=== PATIENT | female | born 1965 | race Caucasian/White ===

== ENCOUNTER 2017-10-01 18:54 | Emergency (ER) | payer BC ==
[2017-10-01] MEDS ORDERED: Acetaminophen TAB* 325 MG PO ONE (20:19)
--- NOTE | 2017-10-01 20:24 | UC ---
Lower Extremity/Ankle HPI - HPI Summary HPI Summary: pt missed a step and fell twisting her R ankle at about 4:30pm. c/o ankle pain. using old crutches to get around. 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 - History of Current Complaint Chief Complaint: UCLowerExtremity Stated Complaint: FALL RIGHT ANKLE INJURY Time Seen by Provider: 10/01/17 20:16 Hx Obtained From: Patient, Family/Project Developer Onset/Duration: Sudden Onset Pain Intensity: 7 Aggravating Factor(s): Ambulation Alleviating Factor(s): Rest, Elevation Able to Bear Weight: No - Allergies/Home Medications Allergies/Adverse Reactions: Allergies Allergy/AdvReac Type Severity Reaction Status Date / Time No Known Allergies Allergy Verified 10/01/17 20:23 Home Medications: Home Medications NK [No Home Medications Reported] 10/01/17 [History Confirmed 10/01/17] PMH/Surg Hx/FS Hx/Imm Hx Previously Healthy: Yes - Surgical History Surgical History: None - Social History Lives: With Family Alcohol Use: None Substance Use Type: None Smoking Status (MU): Never Smoked Tobacco - Immunization History Vaccination Up to Date: Yes Review of Systems Constitutional: Negative Skin: Negative Eyes: Negative ENT: Negative Respiratory: Negative Cardiovascular: Negative Gastrointestinal: Negative Genitourinary: Negative Motor: Negative Neurovascular: Negative Musculoskeletal: Other: - pain/ swelling R ankle Neurological: Negative Psychological: Negative Is Patient Immunocompromised?: No All Other Systems Reviewed And Are Negative: Yes Physical Exam Triage Information Reviewed: Yes Appearance: Well-Appearing Vital Signs: Initial Vital Signs Temp 97.7 F 10/01/17 19:37 Pulse 75 10/01/17 19:37 Resp 16 10/01/17 19:37 BP 160/88 10/01/17 19:37 Pulse Ox 99 10/01/17 19:37 Vital Signs Reviewed: Yes Eyes: Positive: Conjunctiva Clear ENT: Positive: Normal ENT inspection Neck: Positive: Supple Respiratory: Positive: Lungs clear, Normal breath sounds Cardiovascular: Positive: RRR, No Murmur Abdomen Description: Positive: Nontender, No Organomegaly, Soft Bowel Sounds: Positive: Present Musculoskeletal: Positive: Other: - RLE: hip, knee, achilles atraumatic. R lateral ankle with mild swelling and tenderness. foot non tender with full s/v/ m function. Neurological: Positive: Alert Psychological: Positive: Age Appropriate Behavior Skin Exam: Normal Diagnostics - Radiology No standard instances Xray Interpretation: Positive (See Comments) - STS, NO FX(SEE REPORT) Radiology Interpretation Completed By: Radiologist Lower Extremity Course/Dx - Course Course Of Treatment: NO FX, DISLOCATION OR CONCERN FOR INFECTION. C/W SPRAIN. - Differential Dx/Diagnosis Provider Diagnoses: SPRAIN R ANKLE Discharge - Sign-Out/Discharge Documenting (check all that apply): Discharge/Admit/Transfer - Discharge Plan Condition: Stable Disposition: HOME Patient Education Materials: Ankle Sprain (ED) Referrals: Jordy Marley MD [Medical Doctor] - 7 Days Additional Instructions: USE GIOVANY, ANKLE SPLINT AND YOUR CRUTCHES UNTIL CLEARED BY ORTHOPEDICS. - Billing Disposition and Condition Condition: STABLE Disposition: HOME
--- NOTE | 2017-10-01 20:44 | RAD ---
HISTORY: Fall, right ankle pain COMPARISONS: None VIEWS: 3, Frontal, lateral, and oblique views of the right ankle FINDINGS: BONE DENSITY: Normal. BONES: There is no displaced fracture. JOINTS: There is no arthropathy. ALIGNMENT: There is no dislocation. SOFT TISSUES: There is circumferential soft tissue swelling OTHER FINDINGS: None. IMPRESSION: SOFT TISSUE SWELLING. NO ACUTE OSSEOUS INJURY. IF SYMPTOMS PERSIST, RECOMMEND REPEAT IMAGING.
[2017-10-01 20:47] VITALS: BP 156/88
== END 2017-10-01 21:39 | disposition home or self-care (01) ==
LOC: UCCORT 18:54
DX: S93.401A Sprain of unspecified ligament of right ankle, initial encounter (principal); X50.0XXA Overexertion from strenuous movement or load, initial encounter; Y92.9 Unspecified place or not applicable
CPT/HCPCS: 99203; A9270-GY; G0463

== ENCOUNTER 2018-10-08 13:06 | Emergency (ER) | payer OTHER ==
--- OUTSIDE RECORDS SUMMARY | 2018-10-08 13:27 | XMS REPORT | Continuity of Care Document ---
:1965 External Reference #:[id number] Author Name Ava Gross Care Team Providers Name Role Phone Phoebe Miranda MD Primary Care Physician Unavailable Payers Date Identification Numbers Payment Provider Subscriber Policy Number: [id number] Eric Shaver PayID: [id number] [address] [place] [address] Advance Directives Description No Information Available Problems Description No Information Family History Date Family Member(s) Observation Comments General Cancer General Diabetes General Heart Disease General Hypertension Social History Type Date Description Comments Sex Unknown Lives With Alone Occupation Currently Working Tobacco Use Start: Unknown Patient has never smoked Smoking Status Reviewed: 09/17/18 Patient has never smoked Allergies, Adverse Reactions, Alerts Description No Known Drug Allergies Medications Medication Date Status Form Strength Qnty SIG Indications Ordering Provider Amlodipine Active Tablets 5mg Phoebe Miranda Besylate MD Immunizations Description No Information Available Vital Signs Date Vital Result Comment 09/17/2018 9:33am Height 67 inches 5'7" Weight 216.00 lb BP Systolic 132 mmHg BP Diastolic 84 mmHg Respiratory Rate 16 /min Body Temperature 97.9 F Pain Level 6 BMI (Body Mass Index) 33.8 kg/m2 Results Description No Information Available Procedures Description No Information Available Encounters Description No Information Available Plan of Treatment Future Appointment(s):10/15/2018 9:15 am - Demetris Soto MD at [facility]09/17/2018 - Demetris Soto, MDM72.2 Plantar fascial fibromatosisNew Therapy:Physical TherapyFollow up:Follow up: 4 weeks
--- OUTSIDE RECORDS SUMMARY | 2018-10-08 13:27 | XMS REPORT | Continuity of Care Document ---
:1965 External Reference #:[id number] Author Name Phoebe Miranda MD Address [address] [place] [address] Care Team Providers Name Role Phone Phoebe Miranda MD Care Team Information Marketing Analyst Unavailable Phoebe Miranda MD Primary Care Physician Unavailable Payers Date Identification Numbers Payment Provider Subscriber Policy Number: [id number] [employer] Elle Shaver PayID: [id number] [address] [place] [address] Advance Directives Description No Information Available Problems Active Problems Provider Date Benign essential hypertension Phoebe Miranda MD Onset: 09/03/2018 Family History Date Family Member(s) Observation Comments : (age 21 Years) Father due to accident : (age 72 Years) Grandfather due to CO : (age 52 Years) Paternal Grandfather due to accident : (age 68 Years) Paternal Grandmother due to Breast Cancer : (age 72 Years) Maternal Grandfather due to CO : (age 91 Years) Maternal Grandmother due to Diabetes Social History Type Date Description Comments Sex Unknown Marital Status 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 ETOH Use Rarely consumes alcohol Tobacco Use Start: Unknown Patient has never smoked Smoking Status Reviewed: 10/03/18 Patient has never smoked Allergies, Adverse Reactions, Alerts Description No Known Drug Allergies Medications Active Medications SIG Qnty Indications Ordering Provider Date Ergocalciferol take one a 16caps E55.9 Phoebe Miranda MD 09/24/2018 [id number] week Capsules Benazepril HCL Take one every 30tabs Phoebe Miranda MD 09/24/2018 10mg Tablets day Amlodipine Take one every 30caps Phoebe Miranda MD 09/24/2018 Besylate/Benazepril day Hydrochloride 5-10mg Capsules Amlodipine Besylate 1 tab by mouth 30tabs I10 Phoebe Miranda MD 09/03/2018 5mg every day Tablets History Medications No Active Medications Unknown 09/03/2018 - 09/03/2018 Immunizations Description No Information Available Vital Signs Date Vital Result Comment 09/24/2018 8:51am BP Systolic 124 mmHg repeat BP Diastolic 98 mmHg repeat BP Systolic Sitting Left Arm 132 mmHg lg cuff BP Diastolic Sitting Left Arm 98 mmHg lg cuff Body Temperature 99.0 F Heart Rate 72 /min Respiratory Rate 18 /min Height 67 inches 5'7" Weight 216.00 lb BMI (Body Mass Index) 33.8 kg/m2 BSA (Body Surface Area) 2.09 m2 [place] body weight in kilograms 61 kg O2 % BldC Oximetry 98 % Ra 09/03/2018 8:49am BP Systolic Sitting Left Arm 144 mmHg lg cuff BP Diastolic Sitting Left Arm 104 mmHg lg cuff Body Temperature 98.7 F Heart Rate 80 /min Respiratory Rate 18 /min Height 67 inches 5'7" Weight 218.00 lb BMI (Body Mass Index) 34.1 kg/m2 BSA (Body Surface Area) 2.10 m2 [place] body weight in kilograms 61 kg O2 % BldC Oximetry 97 % Ra Results Test Date Facility Test Result H/L Range Note CBC Auto Diff 09/04/2018 [facility] White Blood 4.5 10^3/uL N 3.5-10.8 [phone] Count Red Blood Count 4.79 10^6/uL N 3.70-4.87 Hemoglobin 14.5 g/dL N 12.0-16.0 Hematocrit 42 % High 33-41 Mean Corpuscular Volume 88 fL N 80-97 Mean Corpuscular Hemoglobin 30 pg N 27-31 Mean Corpuscular HGB Conc 35 g/dL N 31-36 Red Cell Distribution Width 14 % N 10.5-15 Platelet Count 269 10^3/uL N 150-450 Mean Platelet Volume 8.2 fL N 7.4-10.4 Abs Neutrophils 3.0 10^3/uL N 1.5-7.7 Abs Lymphocytes 1.0 10^3/uL N 1.0-4.8 Abs Monocytes 0.3 10^3/uL N 0-0.8 Abs Eosinophils 0.1 10^3/uL N 0-0.6 Abs Basophils 0 10^3/uL N 0-0.2 Abs Nucleated RBC 0 10^3/uL Granulocyte % 67.3 % Lymphocyte % 22.2 % Monocyte % 7.3 % Eosinophil % 2.6 % Basophil % 0.6 % Nucleated Red Blood Cells % 0 Comp Metabolic Panel 09/04/2018 [facility] Sodium 141 mmol/L N 135-145 [phone] Potassium 4.5 mmol/L N 3.5-5.0 Chloride 107 mmol/L N 101-111 Co2 Carbon Dioxide 29 mmol/L N 22-32 Anion Gap 5 mmol/L N 2-11 Glucose 98 mg/dL N 70-100 Blood Urea Nitrogen 13 mg/dL N 6-24 Creatinine 0.73 mg/dL N 0.51-0.95 BUN/Creatinine Ratio 17.8 N 8-20 Calcium 9.6 mg/dL N 8.6-10.3 Total Protein 7.4 g/dL N 6.4-8.9 Albumin 4.6 g/dL N 3.2-5.2 Globulin 2.8 g/dL N 2-4 Albumin/Globulin Ratio 1.6 N 1-3 Total Bilirubin 1.10 mg/dL High 0.2-1.0 Alkaline Phosphatase 54 U/L N 34-104 Alt 34 U/L N 7-52 Ast 22 U/L N 13-39 Egfr Non- 83.7 >60 Egfr 101.3 >60 1 Lipid Profile 09/04/2018 [facility] Triglycerides 264 mg/dL 2 (Trig/Chol/HDL) [phone] Cholesterol 232 mg/dL 3 HDL Cholesterol 37.9 mg/dL 4 LDL Cholesterol 141 mg/dL 5 Laboratory test 09/04/2018 [facility] TSH (Thyroid 2.38 mcIU/mL N 0.34-5.60 finding [phone] Stim Horm) Free T4 (Free Thyroxine) 0.80 ng/dL N 0.61-1.12 Vitamin D Total 25(Oh) 13.0 ng/mL Low 20-50 1 Because ethnic data is not always readily available, this report includes an eGFR for both -Americans and non- Americans. The National Kidney Disease Education Program (NKDEP) does not endorse the use of the MDRD equation for patients that are not between the ages of 18 and 70, are , have extremes of body size, muscle mass, or nutritional status, or are non- or non-. According to the National Kidney Foundation, irrespective of diagnosis, the stage of the disease is based on the level of kidney function: Stage Description GFR(mL/min/1.73 m(2)) 1 Kidney damage with normal or decreased GFR 90 2 Kidney damage with mild decrease in GFR 60-89 3 Moderate decrease in GFR 30-59 4 Severe decrease in GFR 15-29 5 Kidney failure <15 (or dialysis) 2 Desirable: <150 Borderline High: 150-199 High: 200-499 Very High: >500 3 Desirable: <200 Borderline High: 200-239 High: >239 4 Low: <40 Desirable: 40-60 High: >60 5 Desirable: <100 Near Optimal: 100-129 Borderline High: 130-159 High: 160-189 Very High: >189 Procedures Date Code Description Status 10/03/2018 [id number] Mammogram Completed 06/04/2016 [id number] Mammogram Completed Encounters Type Date Location Provider Dx Diagnosis Office Visit 09/24/2018 [facility], E55.9 Vitamin D 8:30a Office [facility] Geeta, deficiency, 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, CNM unspecified E78.5 Hyperlipidemia, unspecified M72.2 Plantar fascial fibromatosis S00.462A Insect bite (nonvenomous) of left ear, initial encounter M25.572 Pain in left ankle and joints of left foot I10 Essential (primary) hypertension E66.09 Other obesity due to excess calories Office Visit 09/03/2018 8:40a [facility] Care Phoebe Miranda, Z12.31 Encntr screen Office mammogram for malignant neoplasm of breast E66.09 Other obesity due to excess calories I10 Essential (primary) hypertension M25.572 Pain in left ankle and joints of left foot Plan of Treatment Future Appointment(s):10/15/2018 10:30 am - Geeta Campvoerde MS, 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, CNM at [id number]/15/2018 - Geeta Campoverde MS, 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, [id number] Essential (primary) hypertension
[2018-10-08 14:18] VITALS: BP 142/73
--- NOTE | 2018-10-08 14:29 | UC ---
Throat Pain/Nasal Alexis HPI - HPI Summary HPI Summary: sore throat x 1 day pain is in the left tonsil 6 out of 10 , increase pain with eating , better with Tylenol no fever, no chills, no cough / runny nose, bilateral ear pain x 1 month , no sinus pain , no change in hearing - History of Current Complaint Chief Complaint: UCRespiratory Stated Complaint: BILATERAL EAR THROAT Time Seen by Provider: 10/08/18 14:19 Hx Obtained From: Patient ?: No Onset/Duration: Gradual Onset, Lasting Days - 1, Still Present Severity: Severe Pain Intensity: 7 Cough: None Associated Signs & Symptoms: Negative: Dysphagia, FB Sensation, Drooling, Wheezing, Hoarseness, Sinus Discomfort, Nasal Discharge, Fever, Vomiting, Rash - Allergies/Home Medications Allergies/Adverse Reactions: Allergies Allergy/AdvReac Type Severity Reaction Status Date / Time No Known Allergies Allergy Verified 10/08/18 14:15 PMH/Surg Hx/FS Hx/Imm Hx Previously Healthy: Yes - Surgical History Surgical History: Yes Surgery Procedure, Year, and Place: - Family History Known Family History: Negative: Diabetes - Social History Alcohol Use: Occasionally Substance Use Type: None Smoking Status (MU): Never Smoked Tobacco - Immunization History Vaccination Up to Date: Yes Review of Systems All Other Systems Reviewed And Are Negative: Yes Constitutional: Positive: Negative Skin: Positive: Negative Eyes: Positive: Negative ENT: Positive: Sore Throat, Ear Ache. Negative: Nasal Discharge, Sinus Congestion, Sinus Pain/Tenderness Respiratory: Negative: Cough Cardiovascular: Positive: Negative Is Patient Immunocompromised?: No Physical Exam Triage Information Reviewed: Yes Appearance: Well-Appearing, No Pain Distress, Well-Nourished Vital Signs: Initial Vital Signs Temp 97.3 F 10/08/18 14:16 Pulse 73 10/08/18 14:16 Resp 16 10/08/18 14:16 BP 142/73 10/08/18 14:16 Pulse Ox 100 10/08/18 14:16 Vital Signs Reviewed: Yes Eye Exam: Normal Eyes: Positive: Conjunctiva Clear ENT: Positive: Normal ENT inspection, Hearing grossly normal, Pharyngeal erythema, TMs normal, Tonsillar swelling - left, Tonsillar exudate - left. Negative: Nasal drainage, TM bulging, TM dull, TM red Neck: Positive: Supple, Nontender, No Lymphadenopathy Respiratory: Positive: Chest non-tender, Lungs clear, Normal breath sounds Cardiovascular: Positive: RRR, No Murmur, Pulses Normal Abdominal Exam: Normal Skin Exam: Normal Throat Pain/Nasal Course/Dx - Differential Dx/Diagnosis Provider Diagnosis: Acute bacterial tonsillitis, Otalgia Discharge - Sign-Out/Discharge Documenting (check all that apply): Patient Departure All imaging exams completed and their final reports reviewed: No Studies - Discharge Plan Condition: Stable Disposition: HOME Prescriptions: Amoxicillin PO (*) [Amoxicillin 875 MG (*)] 875 mg PO BID #20 tab Fluticasone NASAL SPRAY 50MCG* [Flonase NASAL SPRAY 50MCG*] 2 spray BOTH NARES DAILY #1 btl Patient Education Materials: Tonsillitis (ED), Earache (ED) Referrals: Phoebe Miranda MD [Primary Care Provider] - 7 Days - Billing Disposition and Condition Condition: STABLE Disposition: Home
== END 2018-10-08 14:37 | disposition home or self-care (01) ==
LOC: UCCORT 13:06
DX: J03.80 Acute tonsillitis due to other specified organisms (principal); B96.89 Other specified bacterial agents as the cause of diseases classified elsewhere; H92.03 Otalgia, bilateral
CPT/HCPCS: 99212; G0463

== ENCOUNTER 2019-01-03 08:54 | Emergency (ER) | payer OTHER ==
[2019-01-03 09:22] VITALS: BP 153/80
--- NOTE | 2019-01-03 09:51 | UC ---
Dental HPI - HPI Summary HPI Summary: She's had 3-4 days of toothache on the right posterior mandibular area. She took couple doses of Keflex and ibuprofen that she had left over from previous episodes. She has a dental appointment on the 20 - History of Current Complaint Chief Complaint: UCDentalProblem Stated Complaint: DENTAL CONCERN Time Seen by Provider: 01/03/19 09:39 Hx Obtained From: Patient Onset/Duration: Gradual Onset Severity: Moderate Pain Intensity: 4 Aggravating Factor(s): Heat, Cold, Chewing Alleviating Factor(s): OTC Meds - Allergies/Home Medications Allergies/Adverse Reactions: Allergies Allergy/AdvReac Type Severity Reaction Status Date / Time No Known Allergies Allergy Verified 01/03/19 09:15 Home Medications: Home Medications Cephalexin CAP* [Keflex CAP*] 500 mg PO DAILY 01/03/19 [History Confirmed ] Ibuprofen TAB* [Advil TAB*] 800 mg PO Q6H PRN 01/03/19 [History Confirmed ] PMH/Surg Hx/FS Hx/Imm Hx Previously Healthy: Yes - Surgical History Surgical History: Yes Surgery Procedure, Year, and Place: - Family History Known Family History: Negative: Diabetes - Social History Alcohol Use: Occasionally Substance Use Type: None Smoking Status (MU): Never Smoked Tobacco - Immunization History Vaccination Up to Date: Yes Review of Systems All Other Systems Reviewed And Are Negative: Yes Skin: Positive: Negative Eyes: Positive: Negative ENT: Positive: Dental Pain Respiratory: Positive: Negative Physical Exam - Summary Physical Exam Summary: She is nontoxic in appearance with stable vitals. Triage Information Reviewed: Yes Appearance: Well-Appearing Vital Signs: Initial Vital Signs Temp 99.3 F 01/03/19 09:18 Pulse 66 01/03/19 09:18 Resp 16 01/03/19 09:18 BP 153/80 01/03/19 09:18 Pulse Ox 100 01/03/19 09:18 Vital Signs Reviewed: Yes Eye Exam: Normal ENT: Positive: Dental tenderness - No abscess or cellulitis Dental: Positive: Percussion Tenderness @. Negative: Abscess @, Cellulitis @, Cervical Lymphadenopathy Neck: Positive: Supple, No Lymphadenopathy Dental Complaint Course/Dx - Course Course Of Treatment: I am going to treat her with penicillin and hydrocodone at night. She also needs a prescription for ibuprofen. - Differential Dx/Diagnosis Provider Diagnosis: Toothache Discharge - Sign-Out/Discharge Documenting (check all that apply): Patient Departure All imaging exams completed and their final reports reviewed: No Studies - Discharge Plan Condition: Stable Disposition: HOME Patient Education Materials: Toothache (ED) Referrals: Phoebe Miranda MD [Primary Care Provider] - Additional Instructions: Your blood pressure was a little bit high here today which is probably a result of the pain. After feeling better you may want to repeat test it. - Billing Disposition and Condition Condition: STABLE Disposition: Home
== END 2019-01-03 10:05 | disposition home or self-care (01) ==
LOC: UCCORT 08:54
DX: K08.89 Other specified disorders of teeth and supporting structures (principal)
CPT/HCPCS: 99212; G0463

== ENCOUNTER 2019-08-13 13:09 | Emergency (ER) | payer BC ==
[2019-08-13 14:48] VITALS: BP 189/93
--- NOTE | 2019-08-13 15:59 | UC ---
Complaint Female HPI - HPI Summary HPI Summary: Pt presents with request for herpes testing. Pt is in a new intimate relationship and new partner was told he was positive for "herpes". Pt denies any active lesions. Pt states she has not had sexual intercourse for over 1 year and states that she "feels a little itchy and sore with intercourse". - History Of Current Complaint Chief Complaint: UCSTDScreening Stated Complaint: PERSONAL Time Seen by Provider: 08/13/19 15:12 Hx Obtained From: Patient Hx Last Menstrual Period: ~2017 ?: No Onset/Duration: Sudden Onset, Lasting Days, Still Present Timing: Intermittent Severity Initially: Mild Severity Currently: Mild Pain Intensity: 0 Character: Dull, Burning Aggravating Factor(s): Nothing Alleviating Factor(s): Nothing Associated Signs And Symptoms: Positive: Negative - Risk Factors Ectopic Risk Factor: Negative Ovarian Torsion Risk Factor: Negative - Allergies/Home Medications Allergies/Adverse Reactions: Allergies Allergy/AdvReac Type Severity Reaction Status Date / Time No Known Allergies Allergy Verified 08/13/19 14:42 Home Medications: Home Medications Acetaminophen [Acetaminophen Extra Strength] 1,000 mg PO Q6H PRN 08/13/19 [ History Confirmed 08/13/19] Hydrocortisone 2.5% CREAM(NF) 1 applic TOPICAL BID PRN 08/13/19 [History Confirmed 08/13/19] Ibuprofen TAB* [Motrin TAB* 800 MG] 800 mg PO Q8H PRN 08/13/19 [History Confirmed 08/13/19] PMH/Surg Hx/FS Hx/Imm Hx Previously Healthy: Yes - Surgical History Surgical History: Yes Surgery Procedure, Year, and Place: , 1990 - Family History Known Family History: Positive: Cardiac Disease Negative: Diabetes - Social History Occupation: Employed Full-time Lives: With Family Alcohol Use: Occasionally Substance Use Type: None Smoking Status (MU): Former Smoker Have You Smoked in the Last Year: No When Did the Patient Quit Smoking/Using Tobacco: ~2002 - Immunization History Vaccination Up to Date: Yes Review of Systems All Other Systems Reviewed And Are Negative: Yes Constitutional: Positive: Negative Skin: Positive: Negative Eyes: Positive: Negative ENT: Positive: Negative Respiratory: Positive: Negative Cardiovascular: Positive: Negative Gastrointestinal: Positive: Negative Genitourinary: Positive: Vaginal/Penile Burning, Vaginal/Penile Itching Motor: Positive: Negative Neurovascular: Positive: Negative Musculoskeletal: Positive: Negative Neurological/Mental Status: Positive: Negative Psychological: Positive: Negative Is Patient Immunocompromised?: No Physical Exam Triage Information Reviewed: Yes Appearance: Well-Appearing Vital Signs: Initial Vital Signs Temp 98.8 F 08/13/19 14:36 Pulse 78 08/13/19 14:36 Resp 16 08/13/19 14:36 BP 189/93 08/13/19 14:36 Pulse Ox 100 08/13/19 14:36 Vital Signs Reviewed: Yes Eye Exam: Normal ENT Exam: Normal Dental Exam: Normal Neck exam: Normal Respiratory Exam: Normal Respiratory: Positive: No respiratory distress Musculoskeletal Exam: Normal Neurological Exam: Normal Psychological Exam: Normal Skin Exam: Normal Complaint Female Dx - Differential Dx/Diagnosis Differential Diagnosis/HQI/PQRI: Sexually Transmitted Disease Provider Diagnosis: Vaginitis Discharge ED - Sign-Out/Discharge Documenting (check all that apply): Patient Departure All imaging exams completed and their final reports reviewed: No Studies - Discharge Plan Condition: Stable Disposition: HOME Patient Education Materials: Vaginitis (ED) Referrals: Phoebe Miranda MD [Primary Care Provider] - If Needed - Billing Disposition and Condition Condition: STABLE Disposition: Home
[2019-08-14] MEDS ORDERED: metroNIDAZOLE TAB* 250 MG PO ONE (14:19)
--- NOTE | 2019-08-14 14:21 | UC ---
- Progress Note Progress Note: Please call patient to advise positive Trichomonas. She has been prescribed a single dose of metronidazole for treatment. This can cause stomach upset, and she should not drink alcohol for at least 24 hours after the dose due to possible interaction. Course/Dx - Diagnoses Provider Diagnoses: Vaginitis Discharge ED - Sign-Out/Discharge Documenting (check all that apply): Post-Discharge Follow Up All imaging exams completed and their final reports reviewed: No Studies - Discharge Plan Condition: Stable Disposition: HOME Patient Education Materials: Vaginitis (ED) Referrals: Phoebe Miranda MD [Primary Care Provider] - If Needed - Billing Disposition and Condition Condition: STABLE Disposition: Home
[2019-08-15 15:37] LABS: Herpes Simplex Virus I IgG AB Negative (Negative); Herpes Simplex Virus II IgG AB Positive (Negative)
== END 2019-08-13 16:10 | disposition home or self-care (01) ==
LOC: UCCORT 13:09
DX: N76.0 Acute vaginitis (principal); Z87.891 Personal history of nicotine dependence
CPT/HCPCS: 86695; 86696; 87480; 87510; 87660; 99211; G0463